=== PATIENT | female | born 1985 | race Caucasian/White ===

== ENCOUNTER 2017-08-27 09:55 | Inpatient (IN) | payer OTHER ==
[~2017-08-27] VITALS: Ht 152.4 cm; Wt 76.2 kg
[2017-08-27] MEDS ORDERED: RINGERS SOLUTION,LACTATED 1,000 ML IV ONE (10:11)
[2017-08-27] MEDS ORDERED: METOCLOPRAMIDE HCL 5 MG/ML 2 ML VIAL IVP ONE (10:15)
[2017-08-27] MEDS ORDERED: CITRIC ACID/SODIUM CITRATE 30 ML SOLUTION UDCUP PO ONE (10:15)
[2017-08-27 11:09] LABS: BASOPHILS % (AUTO) 0.6 % (0.0-2.0); EOSINOPHILS % (AUTO) 1.3 % (1.0-6.0); HEMATOCRIT 36.1 % (36-46); HEMOGLOBIN 12.3 g/dL (12.0-16.0); LYMPHOCYTES # (AUTO) 1.7 K/uL (1.0-4.8); LYMPHOCYTES % (AUTO) 20.9 % (22.0-44.0); MEAN CORPUSCULAR HEMOGLOBIN 31.2 pg (26.0-34.0); MEAN CORPUSCULAR HGB CONC 34.2 G/dL (31.0-37.0); MEAN CORPUSCULAR VOLUME 91 fL (80-100); MONOCYTES # (AUTO) 0.8 K/uL (0.1-1.0); MONOCYTES % (AUTO) 9.4 % (2.0-9.0); NEUTROPHILS # (AUTO) 5.6 K/uL (1.8-7.7); NEUTROPHILS % (AUTO) 67.8 % (40.0-70.0); PLATELET COUNT (AUTO) 254 K/uL (150-450); RED BLOOD CELL COUNT(AUTO) 3.96 MIL/uL (4.00-5.20); RED CELL DISTRIBUTION WIDTH 12.9 % (11.5-14.5)
[2017-08-27] MEDS ORDERED: FentaNYL CITRATE-PF 100 MCG/2 ML VIAL ONE (11:53)
[2017-08-27] MEDS ORDERED: CeFAZolin 2 GM/DEXTROSE 50 ML IV ONE (11:53)
[2017-08-27] MEDS ORDERED: MORPHINE SULFATE/PF 0.5 MG/ML 10 ML AMP ONE (11:54)
[2017-08-27] MEDS ORDERED: DiphenhydrAMINE HCL 50 MG/ML VIAL IVP PRN ×2 (13:00)
[2017-08-27] MEDS ORDERED: PROMETHAZINE HCL 12.5 MG in SODIUM CHLORIDE 0.9% 50 ML IV PRN (13:00)
[2017-08-27] MEDS ORDERED: NALBUPHINE HCL 10 MG/ML VIAL IVP PRN ×3 (13:00)
[2017-08-27] MEDS ORDERED: NALOXONE HCL 0.4 MG/ML VIAL IVP PRN (13:00)
[2017-08-27] MEDS ORDERED: MEPERIDINE-PF 25 MG/ML SYRINGE IVP PRN (13:00)
[2017-08-27] MEDS ORDERED: ONDANSETRON HCL 4 MG/2 ML VIAL IVP PRN ×2 (13:00)
[2017-08-27] MEDS ORDERED: KETOROLAC TROMETHAMINE 30 MG/ML VIAL IVP ONE (13:00)
[2017-08-27] MEDS ORDERED: FentaNYL CITRATE-PF 100 MCG/2 ML VIAL IVP PRN ×4 (13:00)
[2017-08-27] MEDS ORDERED: DEXAMETHASONE SOD PHOS 4 MG/ML VIAL IVP PRN (13:00)
[2017-08-27] MEDS ORDERED: LANOLIN 7 GM OINTMENT TP PRN (13:30)
[2017-08-27] MEDS: DEXTROSE 5%-0.45% SODIUM CHL 1,000 ML IV SCH ×2 (16:09→20:03)
[2017-08-27] MEDS: KETOROLAC TROMETHAMINE 30 MG/ML VIAL IVP SCH (19:11)
[2017-08-27] MEDS ORDERED: OXYGEN THERAPY IH SCH ×4 (20:00)
[2017-08-28] MEDS: DEXTROSE 5%-0.45% SODIUM CHL 1,000 ML IV SCH ×2 (00:05→04:01)
[2017-08-28] MEDS ORDERED: DEXAMETHASONE SOD PHOS 4 MG/ML VIAL IVP ONE (00:22)
[2017-08-28] MEDS ORDERED: EPHEDrine SULFATE 50 MG/ML VIAL IM ONE (00:22)
[2017-08-28] MEDS ORDERED: KETOROLAC TROMETHAMINE 60 MG/2 ML VIAL IM ONE (00:22)
[2017-08-28] MEDS ORDERED: PHENYLEPHRINE HCL 10 MG/ML VIAL IVP ONE (00:22)
[2017-08-28] MEDS ORDERED: 0.9% SODIUM CHLORIDE 10 ML VIAL IVP ONE (00:22)
[2017-08-28] MEDS ORDERED: OXYTOCIN 10 UNITS/ML VIAL IM ONE (00:22)
[2017-08-28] MEDS ORDERED: ONDANSETRON HCL 4 MG/2 ML VIAL IVP ONE (00:22)
[2017-08-28] MEDS: KETOROLAC TROMETHAMINE 30 MG/ML VIAL IVP SCH (01:29)
[2017-08-28] MEDS: IBUPROFEN 800 MG TABLET PO SCH ×3 (06:55→18:48)
[2017-08-28] MEDS: MAGNESIUM HYDROXIDE SUSPENSION 30 ML UDCUP PO SCH ×2 (08:14→22:34)
[2017-08-28] MEDS: ACETAMINOPHEN/CODEINE 300-30 MG TABLET PO PRN ×4 (08:14→22:33)
[2017-08-29] MEDS: IBUPROFEN 800 MG TABLET PO SCH ×4 (00:52→19:35)
[2017-08-29] MEDS: MAGNESIUM HYDROXIDE SUSPENSION 30 ML UDCUP PO SCH ×2 (08:07→20:48)
[2017-08-29] MEDS: ACETAMINOPHEN/CODEINE 300-30 MG TABLET PO PRN ×2 (08:09→12:00)
[2017-08-30] MEDS: IBUPROFEN 800 MG TABLET PO SCH ×2 (01:54→08:17)
[2017-08-30] MEDS: MAGNESIUM HYDROXIDE SUSPENSION 30 ML UDCUP PO SCH (09:00)
[2017-08-30] MEDS: ACETAMINOPHEN/CODEINE 300-30 MG TABLET PO PRN (09:10)
[2017-08-30] MEDS ORDERED: IBUP-2070 PO (11:29)
[2017-08-30] MEDS ORDERED: PERCT PO (11:31)
[2017-08-30] MEDS ORDERED: IBUP-2071 PO (12:16)
== END 2017-08-30 13:15 | disposition home or self-care (01) | DRG 766 ==
LOC: OBSVTOIN 09:55 → 4S 09:55
PROVIDERS: ADMIT Obstetrics & Gynecology; ATTEND Obstetrics & Gynecology
PROC: 10D00Z1 Extraction of Products of Conception, Low, Open Approach (ICD-10-PCS; principal; 2017-08-27)
DX: O34.211 Maternal care for low transverse scar from previous cesarean delivery (principal); Z37.0 Single live birth; Z3A.39 39 weeks gestation of pregnancy
CPT/HCPCS: 86850; 86900; 86901; 87081; J0690; J1100; J1885; J2274; J2370; J2405; J2590; J2765; J3010; J3490; J7120

== ENCOUNTER 2019-04-12 06:25 | Inpatient (IN) | payer OTHER ==
[~2019-04-12] VITALS: Ht 152.4 cm; Wt 79.8 kg
[~2019-04-12 06:25] MED LIST: IBUP-2071 PO; PERCT PO
[2019-04-12] MEDS ORDERED: RINGERS SOLUTION,LACTATED 1,000 ML IV ONE (06:27)
[2019-04-12] MEDS ORDERED: METOCLOPRAMIDE HCL 5 MG/ML 2 ML VIAL IVP ONE (06:30)
[2019-04-12] MEDS ORDERED: CITRIC ACID/SODIUM CITRATE 30 ML SOLUTION UDCUP PO ONE (06:30)
[2019-04-12 07:16] VITALS: BP 106/64
[2019-04-12] MEDS ORDERED: PREN-134 PO (07:19)
[2019-04-12 07:44] LABS: BASOPHILS % (AUTO) 0.3 % (0.0-2.0); EOSINOPHILS % (AUTO) 1.8 % (1.0-6.0); HEMATOCRIT 33.5 % (36-46); HEMOGLOBIN 11.2 g/dL (12.0-16.0); LYMPHOCYTES # (AUTO) 2.1 K/uL (1.0-4.8); LYMPHOCYTES % (AUTO) 24.6 % (22.0-44.0); MEAN CORPUSCULAR HEMOGLOBIN 30.7 pg (26.0-34.0); MEAN CORPUSCULAR HGB CONC 33.5 G/dL (31.0-37.0); MEAN CORPUSCULAR VOLUME 92 fL (80-100); MONOCYTES # (AUTO) 0.8 K/uL (0.1-1.0); MONOCYTES % (AUTO) 8.9 % (2.0-9.0); NEUTROPHILS # (AUTO) 5.6 K/uL (1.8-7.7); NEUTROPHILS % (AUTO) 64.4 % (40.0-70.0); PLATELET COUNT (AUTO) 252 K/uL (150-450); RED BLOOD CELL COUNT(AUTO) 3.66 MIL/uL (4.00-5.20); RED CELL DISTRIBUTION WIDTH 13.4 % (11.5-14.5)
[2019-04-12] MEDS ORDERED: MIDAZOLAM HCL 2 MG/2 ML VIAL ONE (07:50)
[2019-04-12] MEDS ORDERED: MORPHINE SULFATE/PF 1 MG/ML 10 ML AMP ONE (07:50)
[2019-04-12] MEDS ORDERED: FentaNYL CITRATE-PF 100 MCG/2 ML VIAL ONE (07:50)
[2019-04-12] MEDS ORDERED: BUPIVACAINE HCL/DEX-WATER/PF 0.75% 2 ML AMP ONE (07:50)
[2019-04-12] MEDS ORDERED: DEXAMETHASONE SOD PHOS 4 MG/ML VIAL ONE (07:51)
[2019-04-12] MEDS ORDERED: ONDANSETRON HCL 4 MG/2 ML VIAL ONE (07:51)
[2019-04-12] MEDS ORDERED: DiphenhydrAMINE HCL 50 MG/ML VIAL IVP PRN (09:15)
[2019-04-12] MEDS ORDERED: NALOXONE HCL 0.4 MG/ML VIAL IVP PRN (09:15)
[2019-04-12] MEDS ORDERED: OxyCODONE HCL/ACETAMINOPHEN 5-325 MG TABLET PO PRN (09:15)
[2019-04-12] MEDS ORDERED: ONDANSETRON HCL 4 MG/2 ML VIAL IVP PRN (09:15)
[2019-04-12] MEDS ORDERED: FentaNYL CITRATE-PF 100 MCG/2 ML VIAL IVP PRN (09:15)
[2019-04-12] MEDS ORDERED: ACETAMINOPHEN/CODEINE 300-30 MG TABLET PO PRN ×2 (09:30)
[2019-04-12] MEDS ORDERED: LANOLIN 7 GM OINTMENT TP PRN (09:30)
[2019-04-12] MEDS: KETOROLAC TROMETHAMINE 30 MG/ML VIAL IVP SCH ×2 (16:42→23:07)
[2019-04-12] MEDS: DEXTROSE 5%-0.45% SODIUM CHL 1,000 ML IV SCH ×2 (17:20→21:15)
[2019-04-12] MEDS ORDERED: OXYGEN THERAPY IH SCH (20:00)
[2019-04-12] MEDS: MAGNESIUM HYDROXIDE SUSPENSION 30 ML UDCUP PO SCH (21:15)
[2019-04-13] MEDS: DEXTROSE 5%-0.45% SODIUM CHL 1,000 ML IV SCH ×2 (01:18→05:24)
[2019-04-13] MEDS ORDERED: IBUPROFEN 800 MG TABLET PO SCH (02:00)
[2019-04-13] MEDS ORDERED: 0.9% SODIUM CHLORIDE 10 ML VIAL IVP ONE (06:03)
[2019-04-13] MEDS ORDERED: EPHEDrine SULFATE 50 MG/ML VIAL IM ONE (06:03)
[2019-04-13] MEDS ORDERED: PROPOFOL 1% 20 ML VIAL IVP ONE (06:03)
[2019-04-13] MEDS ORDERED: ONDANSETRON HCL 4 MG/2 ML VIAL IVP ONE (06:03)
[2019-04-13] MEDS ORDERED: DEXAMETHASONE SOD PHOS 4 MG/ML VIAL IVP ONE (06:03)
[2019-04-13] MEDS ORDERED: OXYTOCIN 10 UNITS/ML VIAL IM ONE (06:03)
[2019-04-13] MEDS: IBUPROFEN 800 MG TABLET PO SCH ×3 (08:55→23:07)
[2019-04-13] MEDS: MAGNESIUM HYDROXIDE SUSPENSION 30 ML UDCUP PO SCH ×2 (08:55→22:21)
[2019-04-13] MEDS ORDERED: ACETAMINOPHEN/CODEINE 300-30 MG TABLET PO PRN (09:30)
[2019-04-13] MEDS: ACETAMINOPHEN/CODEINE 300-30 MG TABLET PO PRN (20:20)
[2019-04-14] MEDS: ACETAMINOPHEN/CODEINE 300-30 MG TABLET PO PRN ×3 (03:09→20:27)
[2019-04-14] MEDS: IBUPROFEN 800 MG TABLET PO SCH ×3 (05:42→18:41)
[2019-04-14] MEDS: MAGNESIUM HYDROXIDE SUSPENSION 30 ML UDCUP PO SCH (09:00)
[2019-04-14 19:52] VITALS: BP 102/62
[2019-04-15] MEDS: IBUPROFEN 800 MG TABLET PO SCH ×2 (00:43→06:47)
[2019-04-15] MEDS: ACETAMINOPHEN/CODEINE 300-30 MG TABLET PO PRN ×2 (03:49→10:24)
[2019-04-15] MEDS ORDERED: ACET1TAB12 PO (10:04)
== END 2019-04-15 13:55 | disposition home or self-care (01) | DRG 785 ==
LOC: 4S 06:25 → PREOBSVTOIN 05-16 06:37
PROVIDERS: ADMIT Obstetrics & Gynecology; ATTEND Obstetrics & Gynecology
PROC: 10D00Z1 Extraction of Products of Conception, Low, Open Approach (ICD-10-PCS; principal; 2019-04-12)
PROC: 0UL70ZZ Occlusion of Bilateral Fallopian Tubes, Open Approach (ICD-10-PCS; 2019-04-12)
DX: O34.211 Maternal care for low transverse scar from previous cesarean delivery (principal); Z3A.39 39 weeks gestation of pregnancy; Z37.0 Single live birth; Z30.2 Encounter for sterilization
CPT/HCPCS: 86850; 86900; 86901; 86920; 87081; 88302; J0690; J1100; J1885; J2250; J2405; J2590; J2704; J2765; J3010; J3490; J7120